=== PATIENT | female | born 1990 | race Caucasian/White ===

== ENCOUNTER 2022-12-29 18:25 | Inpatient (IN) | payer BC, OTHER ==
[~2022-12-29] VITALS: Ht 167.7 cm; Wt 95.2 kg
[2022-12-29 19:00] VITALS: BP 119/64
[2022-12-29] MEDS ORDERED: LACTATED RINGERS 500 ML IV PRN (20:00)
[2022-12-29] MEDS ORDERED: MINERAL OIL 30 ML UDC TOP PRN (20:00)
--- NOTE | 2022-12-29 20:00 | History & Physical-OB ---
OB - Chief Complaint & HPI Date/Time Date of Admission: Date of Admission: Dec 29, 2022 at 18:25 Date seen by a Provider: Dec 29, 2022 Time Seen by a Provider: 19:00 Chief Complaint/History OB-Reason for Admission/Chief: Induction of Labor Hx : 3 Hx Para: 0 Expected Date of Delivery: Dec 29, 2022 Gestational Age in Weeks: 40 Gestational Age in Days: 0 Other Pt reports good movement, no LOF, no VB, and she has been feeling some mild contractions today. She denies any personal or family history of bleeding disorders that she is aware of, denies any complications, no drug or EtOH use. To prior spontaneous abortions. She is here for induction of labor this evening. She would like an epidural and plans to breast feed. Allergies and Home Medications Allergies Coded Allergies: No Known Drug Allergies (Unverified , 12/29/22) Patient Home Medication List Home Medication List Reviewed: Yes OB - History Hx of Present Care: Yes Ultrasounds: Normal mid trimester US Obstetrical Complications: None Medical Complications: None Information Induced Hypertension: No Maternal Gestational Diabetes: No Hemorrhage: No Obstetrical History Hx : 3 Hx Para: 0 Hx Total # of Abortions (Spona: 2 Patient Past Medical History No significant medical history. H/o 2 spontaneous abortions at 5wks and 8wks respecitvely. Social History/Family History Alcohol Use: Denies Use Recreational Drug Use: No OB - Admission Exam Physical Exam Heart: Rhythm Normal Lungs: Clear Abdomen: Gravid Extremities: Normal Reflexes: Normal Cervical Dilatation: 2cm Effacement: 0% Station: -3 Membranes: Intact Heart Rate: 130's Accelerations: Accelerations Present Decelerations: No Decelerations Short Term Variability: Present Enhanced Environmental Operator Variability: Average (6-25) Contractions on Admission: >10 Minutes Apart Intensity: Mild OB - Assessment/Plan/Diagnosis Assessment Assessment: induction of labor Admission Dx Induction of labor Admission Status: Inpatient Order (span 2 midnights) Reason for Inpatient Admission: Induction of labor Plan Plan: Induction Induction Method: per Misoprostol Protocol Problems: (1) Encounter for induction of labor Assessment & Plan: Cytotec protocol - Initial, 50 mcg Cytotec, oral - Subsequent 25 mcg Cytotec oral, q4hrs - Diet: clear liquids (2) 40 weeks gestation of REYNALDO NOWAK MD Dec 29, 2022 20:00
[2022-12-29 20:08] LABS: BASOPHILS % (AUTO) 0 % (0-10); EOSINOPHILS # (AUTO) 0.1 10^3/uL (0.0-0.3); EOSINOPHILS % (AUTO) 1 % (0-10); HEMATOCRIT 38 % (35-52); HEMOGLOBIN 12.9 g/dL (11.5-16.0); LYMPHOCYTES % (AUTO) 17 % (12-44); MEAN CORPUSCULAR HEMOGLOBIN 32 pg (25-34); MEAN CORPUSCULAR HGB CONC 34 g/dL (32-36); MEAN CORPUSCULAR VOLUME 94 fL (80-99); MEAN PLATELET VOLUME 12.3 fL (9.0-12.2); MONOCYTES # (AUTO) 0.9 10^3/uL (0.0-1.0); MONOCYTES % (AUTO) 8 % (0-12); NEUTROPHILS # (AUTO) 8.9 10^3/uL (1.8-7.8); NEUTROPHILS % (AUTO) 74 % (42-75); PLATELET COUNT 137 10^3/uL (130-400)
[2022-12-29] MEDS ORDERED: diphenhydrAMINE 25 MG TABLET PO ONE (20:15)
[2022-12-29] MEDS ORDERED: BUTORPHANOL INJ 2 MG/ML VIAL IV PRN (20:15)
[2022-12-29] MEDS ORDERED: D5 LR 1,000 ML IV SOLN 1,000 ML IV ONE (20:17)
[2022-12-29] MEDS: D5 LR 1,000 ML IV SOLN 1,000 ML IV SCH (20:27)
[2022-12-29] MEDS: LACTATED RINGERS 1,000 ML IV SCH (20:28)
[2022-12-29 20:52] LABS: CLARITY,URINE CLEAR; COLOR,URINE YELLOW; PH,URINE 6.5 (5-9); PROTEIN,URINE NEGATIVE (NEGATIVE)
[2022-12-29 20:53] LABS: BACTERIA,URINE FEW /HPF; BILIRUBIN,URINE NEGATIVE (NEGATIVE); GLUCOSE, URINE (UA) NEGATIVE (NEGATIVE); KETONES,URINE TRACE (NEGATIVE); LEUKOCYTE ESTERASE ,URINE NEGATIVE (NEGATIVE); NITRITE,URINE NEGATIVE (NEGATIVE); SQUAMOUS EPITHELIAL CELL,UR RARE /HPF; WBC,URINE RARE /HPF
[2022-12-29 23:52] VITALS: BP 106/59
[2022-12-30] VITALS (51 sets, daily range): BP systolic 94–154; BP diastolic 52–91
[2022-12-30] MEDS: D5 LR 1,000 ML IV SOLN 1,000 ML IV SCH ×3 (05:10→21:02)
--- NOTE | 2022-12-30 08:38 | Labor Progress Note ---
Labor Progress Note Labor Progress Note Date Seen by Provider: Dec 30, 2022 Time Seen by Provider: 08:36 Subjective: Pt denies complaints. Having some ctxs and they are getting more intense Objective: 2/50/-2 Intact Assessment/Plan: Priyanka Robles is a (30 /Para 3 / 0,Gestational Age (wks)40.1 here for elective IOL CEFM/TOCO Start Pitocin Protocol GBS Neg Anesthesia: Desires epidural Anticipate vaginal delivery. Vitals - Labs Vital Signs - I&O Vital Signs Date Time Temp Pulse Resp B/P (MAP) Pulse Ox O2 Delivery O2 Flow Rate FiO2 12/30/22 03:47 36.4 69 18 104/57 (73) 95 Room Air 12/29/22 23:52 36.3 71 18 106/59 (75) 96 Room Air 12/29/22 19:00 36.6 83 18 98 Room Air Labs Laboratory Tests 12/29/22 19:15: White Blood Count 12.0H, Red Blood Count 4.04, Hemoglobin 12.9, Hematocrit 38, Mean Corpuscular Volume 94, Mean Corpuscular Hemoglobin 32, Mean Corpuscular Hemoglobin Concent 34, Red Cell Distribution Width 13.4, Platelet Count 137, Mean Platelet Volume 12.3H, Immature Granulocyte % (Auto) 1, Neutrophils (%) (Auto) 74, Lymphocytes (%) (Auto) 17, Monocytes (%) (Auto) 8, Eosinophils (%) (Auto) 1, Basophils (%) (Auto) 0, Neutrophils # (Auto) 8.9H, Lymphocytes # (Auto) 2.0, Monocytes # (Auto) 0.9, Eosinophils # (Auto) 0.1, Basophils # (Auto) 0.0, Immature Granulocyte # (Auto) 0.1, Urine Color YELLOW, Urine Clarity CLEAR, Urine pH 6.5, Urine Specific [place] 1.020, Urine Protein NEGATIVE, Urine Glucose (UA) NEGATIVE, Urine Ketones TRACEH, Urine Nitrite NEGATIVE, Urine Bilirubin NEGATIVE, Urine Urobilinogen 0.2, Urine Leukocyte Esterase NEGATIVE, Urine RBC (Auto) TRACEH, Urine RBC NONE, Urine WBC RARE, Urine Squamous Epithelial Cells RARE, Urine Crystals NONE, Urine Bacteria FEWH, Urine Casts NONE, Urine Mucus NEGATIVE, Urine Culture Indicated YES, Syphilis Total Antibody Negative ELIDA RAMOS MD Dec 30, 2022 08:38
[2022-12-30] MEDS ORDERED: OXYTOCIN PRE-MIX DRIP 500 ML IV SCH (08:45)
[2022-12-30] MEDS: LACTATED RINGERS 1,000 ML IV SCH (13:10)
[2022-12-30] MEDS ORDERED: fentaNYL 2 mcg/ml BUPIVA 0.125 100 ML ONE (14:02)
[2022-12-30] MEDS ORDERED: fentaNYL 2 mcg/ml BUPIVA 0.125 100 ML EPI SCH (14:45)
[2022-12-30] MEDS ORDERED: NALOXONE 0.4 MG/ML 1 ML VIAL IV PRN ×2 (14:45)
[2022-12-30] MEDS ORDERED: diphenhydrAMINE INJ 50 MG/ML VIAL IV PRN (14:45)
[2022-12-30] MEDS ORDERED: LACTATED RINGERS 1,000 ML IV SCH (14:45)
[2022-12-30] MEDS ORDERED: METOCLOPRAMIDE INJ 10 MG/2 ML IV PRN (14:45)
[2022-12-30] MEDS ORDERED: ONDANSETRON 4 MG/2 ML (SDV) Z0FRAN IV PRN (14:45)
--- NOTE | 2022-12-30 18:58 | Labor Progress Note ---
Labor Progress Note Labor Progress Note Date Seen by Provider: Dec 30, 2022 Time Seen by Provider: 18:10 Subjective: Pt denies complaints. Pain well controlled with epidural. Feeling some pressure Objective: complete/100/0 Assessment/Plan: Priyanka Robles is a (30 /Para 3 / 0,Gestational Age (wks)40.0 here for elective IOL. CEFM/TOCO Continue pitocin augmentation Anesthesia: epidural in place Anticipate vaginal delivery. Vitals - Labs Vital Signs - I&O Vital Signs Date Time Temp Pulse Resp B/P (MAP) Pulse Ox O2 Delivery O2 Flow Rate FiO2 12/30/22 18:00 37.1 94 18 128/86 (100) 99 Room Air 12/30/22 17:45 94 18 128/86 (100) 99 Room Air 12/30/22 17:30 82 18 154/75 (101) 99 Room Air 12/30/22 17:15 86 18 113/68 (83) 99 Room Air 12/30/22 17:00 75 18 109/61 (77) 100 Room Air 12/30/22 16:45 75 18 109/61 (77) 100 Room Air 12/30/22 16:30 75 18 98/58 (71) 100 Room Air 12/30/22 16:15 75 18 98/58 (71) 100 Room Air 12/30/22 16:00 86 18 103/63 (76) 100 Room Air 12/30/22 15:45 71 18 113/59 (77) 100 Room Air 12/30/22 15:40 82 18 104/56 (72) 99 Room Air 12/30/22 15:30 77 18 100 Room Air 15.00 12/30/22 15:20 70 18 121/56 (77) 100 Room Air 12/30/22 15:19 Room Air 12/30/22 15:15 70 18 125/66 (85) 100 Non Rebreather 15.00 12/30/22 15:14 Non Rebreather 15.00 12/30/22 15:10 77 18 119/75 (90) 99 Room Air 12/30/22 15:10 73 18 124/73 (90) 99 Room Air 12/30/22 15:05 72 18 114/69 (84) 100 Room Air 12/30/22 15:00 75 18 111/67 (82) 99 Room Air 12/30/22 14:55 75 18 113/63 (80) 98 Room Air 12/30/22 14:50 71 18 115/69 (84) 99 Room Air 12/30/22 14:45 77 18 118/70 (86) 99 Room Air 12/30/22 14:40 74 18 120/70 (87) 99 Room Air 12/30/22 14:35 36.5 68 18 129/72 (91) 98 Room Air 12/30/22 14:30 77 18 120/72 (88) 100 Room Air 12/30/22 14:25 68 18 129/77 (94) 100 Room Air 12/30/22 14:15 65 18 131/75 (93) Room Air 12/30/22 14:00 67 18 121/74 (90) Room Air 12/30/22 13:45 18 Room Air 12/30/22 13:30 18 Room Air 12/30/22 13:15 18 Room Air 12/30/22 13:00 18 Room Air 12/30/22 12:45 61 18 94/55 (68) Room Air 12/30/22 12:30 59 18 97/55 (69) Room Air 12/30/22 12:15 56 18 95/52 (66) Room Air 12/30/22 12:00 36.6 68 18 109/60 (76) Room Air 12/30/22 11:45 72 18 112/70 (84) Room Air 12/30/22 11:30 88 18 121/71 (88) Room Air 12/30/22 11:15 36.3 88 18 121/71 (88) Room Air 12/30/22 11:00 74 18 115/67 (83) Room Air 12/30/22 10:45 74 18 111/67 (82) Room Air 12/30/22 10:30 66 18 118/71 (87) Room Air 12/30/22 10:15 80 18 128/91 (103) Room Air 12/30/22 10:00 76 18 126/80 (95) Room Air 12/30/22 09:45 70 18 111/70 (84) Room Air 12/30/22 09:30 71 18 102/59 (73) Room Air 12/30/22 09:00 18 Room Air 12/30/22 08:30 36.4 89 18 113/70 (84) Room Air 12/30/22 03:47 36.4 69 18 104/57 (73) 95 Room Air 12/29/22 23:52 36.3 71 18 106/59 (75) 96 Room Air 12/29/22 19:00 36.6 83 18 98 Room Air Labs Laboratory Tests 12/29/22 19:15: White Blood Count 12.0H, Red Blood Count 4.04, Hemoglobin 12.9, Hematocrit 38, Mean Corpuscular Volume 94, Mean Corpuscular Hemoglobin 32, Mean Corpuscular Hemoglobin Concent 34, Red Cell Distribution Width 13.4, Platelet Count 137, Mean Platelet Volume 12.3H, Immature Granulocyte % (Auto) 1, Neutrophils (%) (Auto) 74, Lymphocytes (%) (Auto) 17, Monocytes (%) (Auto) 8, Eosinophils (%) (Auto) 1, Basophils (%) (Auto) 0, Neutrophils # (Auto) 8.9H, Lymphocytes # (Auto ) 2.0, Monocytes # (Auto) 0.9, Eosinophils # (Auto) 0.1, Basophils # (Auto) 0.0, Immature Granulocyte # (Auto) 0.1, Urine Color YELLOW, Urine Clarity CLEAR, Urine pH 6.5, Urine Specific [place] 1.020, Urine Protein NEGATIVE, Urine Glucose (UA) NEGATIVE, Urine Ketones TRACEH, Urine Nitrite NEGATIVE, Urine Bilirubin NEGATIVE, Urine Urobilinogen 0.2, Urine Leukocyte Esterase NEGATIVE, Urine RBC (Auto) TRACEH, Urine RBC NONE, Urine WBC RARE, Urine Squamous Epithelial Cells RARE, Urine Crystals NONE, Urine Bacteria FEWH, Urine Casts NONE, Urine Mucus NEGATIVE, Urine Culture Indicated YES, Syphilis Total Antibody Negative Microbiology 12/29/22 Urine Culture - Preliminary, Resulted Gram Pos Mixed Bacterial Esperanza ELIDA RAMOS MD Dec 30, 2022 18:58
[2022-12-30] MEDS ORDERED: LIDOCAINE 2% w/EPI 1:200,000 20 ML VIAL ONE (19:29)
--- NOTE | 2022-12-30 20:55 | OB Labor & Delivery Record ---
Vag Delivery Note Vag Delivery Note Date of Delivery: 12/30/22 Preoperative Diagnosis: Priyanka Robles is a (30 /Para 3 / 0, Gestational Age (wks)40.0 wga here for elective IOL Postoperative Diagnosis: Same Surgeon: ELIDA RAMOS MD Pockets And Pieces Necktie Operator: None Anesthesia: Epidural Delivery Type: @ 2020 Findings: Viable Male infant, apgars 8/9, weight 9#6, 4245 grams Lacerations: 2nd degree perineal laceration Intact placenta with 3 vessel cord. No nuchal cord, body cord or shoulder dystocia Estimated Blood Loss: 200 ml Complications: None Condition: Stable Description of Procedure: The patient is a 32 year old female who presented for elective IOL. She was admitted and informed consent was obtained. Her labor course was remarkable for pitocin augmentation. She progressed to complete dilatation and began to push. She was then set up for delivery. The infant's head was delivered atraumatically in the CAROLINE position. The shoulders and remainder of the 's body were then delivered without difficulty. Upon delivery, the infant was vigorous and placed on maternal chest and the mouth and nares were bulb suctioned and attended to by nursery nurse. After a 3 min delay, cord was doubly clamped and cut by FOB and the remained on maternal chest. An intact placenta with 3-vessel cord delivered via Sweetie and there was found to be minimal bleeding.~ Vigorous fundal massage was performed and the fundus was found to be firm. IV oxytocin was given. Examination of the vagina and perineum revealed a 2nd degree perineal laceration repaired in the usual fashion with 3-0 vicryl rapide suture. Following the repair, sponge, instrument and needle counts were correct. Mom and baby were both in stable condition in the labor suite. Vitals - Labs Vital Signs - I&O Vital Signs Date Time Temp Pulse Resp B/P (MAP) Pulse Ox O2 Delivery O2 Flow Rate FiO2 12/30/22 19:00 90 18 126/77 (93) 100 Room Air 12/30/22 18:45 76 18 126/77 (93) 100 Room Air 12/30/22 18:30 76 18 124/75 (91) 100 Room Air 12/30/22 18:15 90 18 125/77 (93) 100 Room Air 12/30/22 18:00 37.1 94 18 128/86 (100) 99 Room Air 12/30/22 17:45 94 18 128/86 (100) 99 Room Air 12/30/22 17:30 82 18 154/75 (101) 99 Room Air 12/30/22 17:15 86 18 113/68 (83) 99 Room Air 12/30/22 17:00 75 18 109/61 (77) 100 Room Air 12/30/22 16:45 75 18 109/61 (77) 100 Room Air 12/30/22 16:30 75 18 98/58 (71) 100 Room Air 12/30/22 16:15 75 18 98/58 (71) 100 Room Air 12/30/22 16:00 86 18 103/63 (76) 100 Room Air 12/30/22 15:45 71 18 113/59 (77) 100 Room Air 12/30/22 15:40 82 18 104/56 (72) 99 Room Air 12/30/22 15:30 77 18 100 Room Air 15.00 12/30/22 15:20 70 18 121/56 (77) 100 Room Air 12/30/22 15:19 Room Air 12/30/22 15:15 70 18 125/66 (85) 100 Non Rebreather 15.00 12/30/22 15:14 Non Rebreather 15.00 12/30/22 15:10 77 18 119/75 (90) 99 Room Air 12/30/22 15:10 73 18 124/73 (90) 99 Room Air 12/30/22 15:05 72 18 114/69 (84) 100 Room Air 12/30/22 15:00 75 18 111/67 (82) 99 Room Air 12/30/22 14:55 75 18 113/63 (80) 98 Room Air 12/30/22 14:50 71 18 115/69 (84) 99 Room Air 12/30/22 14:45 77 18 118/70 (86) 99 Room Air 12/30/22 14:40 74 18 120/70 (87) 99 Room Air 12/30/22 14:35 36.5 68 18 129/72 (91) 98 Room Air 12/30/22 14:30 77 18 120/72 (88) 100 Room Air 12/30/22 14:25 68 18 129/77 (94) 100 Room Air 12/30/22 14:15 65 18 131/75 (93) Room Air 12/30/22 14:00 67 18 121/74 (90) Room Air 12/30/22 13:45 18 Room Air 12/30/22 13:30 18 Room Air 12/30/22 13:15 18 Room Air 12/30/22 13:00 18 Room Air 12/30/22 12:45 61 18 94/55 (68) Room Air 12/30/22 12:30 59 18 97/55 (69) Room Air 12/30/22 12:15 56 18 95/52 (66) Room Air 12/30/22 12:00 36.6 68 18 109/60 (76) Room Air 12/30/22 11:45 72 18 112/70 (84) Room Air 12/30/22 11:30 88 18 121/71 (88) Room Air 12/30/22 11:15 36.3 88 18 121/71 (88) Room Air 12/30/22 11:00 74 18 115/67 (83) Room Air 12/30/22 10:45 74 18 111/67 (82) Room Air 12/30/22 10:30 66 18 118/71 (87) Room Air 12/30/22 10:15 80 18 128/91 (103) Room Air 12/30/22 10:00 76 18 126/80 (95) Room Air 12/30/22 09:45 70 18 111/70 (84) Room Air 12/30/22 09:30 71 18 102/59 (73) Room Air 12/30/22 09:00 18 Room Air 12/30/22 08:30 36.4 89 18 113/70 (84) Room Air 12/30/22 03:47 36.4 69 18 104/57 (73) 95 Room Air 12/29/22 23:52 36.3 71 18 106/59 (75) 96 Room Air Labs Microbiology 12/29/22 Urine Culture - Preliminary, Resulted Gram Pos Mixed Bacterial Esperanza ELIDA RAMOS MD Dec 30, 2022 20:55
[2022-12-30] MEDS ORDERED: WITCH HAZEL(TUCKS) 40 EA JAR TOP PRN (21:00)
[2022-12-30] MEDS ORDERED: ACETAMINOPHEN 500 MG TABLET PO SCH (21:00)
[2022-12-30] MEDS ORDERED: BENZOCAINE/MENTHOL (DERMOPLAST) 56 ML CAN TP PRN (21:00)
[2022-12-30] MEDS ORDERED: IBUPROFEN 600 MG TABLET PO SCH (21:00)
[2022-12-30] MEDS: OXYTOCIN PRE-MIX DRIP 500 ML IV SCH ×2 (21:03→21:31)
[2022-12-30] MEDS: CATHETER FLUSH 10 ML SYR IV SCH (22:00)
[2022-12-30] MEDS: DOCUSATE SODIUM 100 MG CAPSULE PO SCH (23:07)
[2022-12-30] MEDS: ACETAMINOPHEN 500 MG TABLET PO SCH (23:07)
[2022-12-30] MEDS: IBUPROFEN 600 MG TABLET PO SCH (23:07)
[2022-12-31 00:20] VITALS: BP 106/52
[2022-12-31] MEDS ORDERED: DIBUCAINE 1% OINTMENT 28 GM TUBE TOP PRN (01:00)
[2022-12-31 03:36] VITALS: BP 116/56
[2022-12-31] MEDS: ACETAMINOPHEN 500 MG TABLET PO SCH ×3 (05:25→18:19)
[2022-12-31] MEDS: IBUPROFEN 600 MG TABLET PO SCH ×3 (05:25→18:19)
[2022-12-31 05:30] LABS: EOSINOPHILS # (AUTO) 0.1 10^3/uL (0.0-0.3); EOSINOPHILS % (AUTO) 1 % (0-10); MEAN CORPUSCULAR HGB CONC 34 g/dL (32-36)
[2022-12-31 05:32] LABS: BASOPHILS % (AUTO) 0 % (0-10); HEMATOCRIT 32 % (35-52); HEMOGLOBIN 10.9 g/dL (11.5-16.0); LYMPHOCYTES # (AUTO) 1.6 10^3/uL (1.0-4.0); LYMPHOCYTES % (AUTO) 11 % (12-44); MEAN CORPUSCULAR HEMOGLOBIN 32 pg (25-34); MEAN CORPUSCULAR VOLUME 94 fL (80-99); MEAN PLATELET VOLUME 12.2 fL (9.0-12.2); MONOCYTES # (AUTO) 1.4 10^3/uL (0.0-1.0); MONOCYTES % (AUTO) 9 % (0-12); NEUTROPHILS # (AUTO) 11.7 10^3/uL (1.8-7.8); NEUTROPHILS % (AUTO) 79 % (42-75); PLATELET COUNT 118 10^3/uL (130-400); WHITE BLOOD COUNT 14.9 10^3/uL (4.3-11.0)
[2022-12-31 09:02] VITALS: BP 110/65
[2022-12-31] MEDS: FERROUS SULFATE 325 MG (IRON) TABLET PO SCH (09:02)
[2022-12-31] MEDS: DOCUSATE SODIUM 100 MG CAPSULE PO SCH (09:02)
--- NOTE | 2022-12-31 09:43 | Anesthesia-Regional Post-Op ---
Regional Patient Condition Mental Status: Alert, Oriented x3 Circulation: Same as Pre-Op Headache: Absent Sensation: Full Recovery Motor Block: Absent Post Op Complications Complications None Follow Up Care/Instructions Patient Instructions None needed. Anesthesia/Patient Condition Patient is doing well, no complaints, stable vital signs, no apparent adverse anesthesia problems. No complications reported per nursing. BRANNON BUTT CRNA Dec 31, 2022 09:43
--- NOTE | 2022-12-31 11:52 | Postpartum Progress Note ---
Note Note Day # 1 Subjective: Patient is without complaints. Ambulating, voiding. Tolerating a regular diet without nausea or vomiting. Normal lochia. Pain is well controlled with oral pain medications. Breast feeding. Objective: Vital Signs 12/30/22 12/31/22 15:30 09:02 Temp 36.4 Pulse 79 Resp 18 B/P (MAP) 110/65 (80) Pulse Ox 98 O2 Delivery Room Air O2 Flow Rate 15.00 Physical Exam: General - Alert and oriented, no apparent distress Lungs - CTAB Heart - RRR, no murmur Abdomen - Soft, appropriately tender to palpation, non-distended, fundus firm at umbilicus Extremities - no edema Assessment: post- day # 1, status post spontaneous vaginal delivery. Asymptomatic acute blood loss anemia Recovering well, hemodynamically stable Plan: Routine care. Encourage breast feeding. Encourage ambulation. Ferrous sulfate supplementation. Plan for discharge tomorrow Vitals - Labs Vital Signs - I&O Vital Signs Date Time Temp Pulse Resp B/P (MAP) Pulse Ox O2 Delivery O2 Flow Rate FiO2 12/31/22 09:02 36.4 79 18 110/65 (80) 98 Room Air 12/31/22 03:36 36.5 76 20 116/56 (76) 98 Room Air 12/31/22 00:20 36.8 81 20 106/52 (70) 96 Room Air 12/30/22 21:02 90 116/61 (79) 12/30/22 20:39 95 117/67 (84) 12/30/22 20:09 85 123/71 (88) 100 Room Air 12/30/22 19:54 73 123/66 (85) 100 Room Air 12/30/22 19:25 37.1 76 20 123/78 (93) 100 Room Air 12/30/22 19:10 74 123/72 (89) 100 Room Air 12/30/22 19:00 90 18 126/77 (93) 100 Room Air 12/30/22 18:45 76 18 126/77 (93) 100 Room Air 12/30/22 18:30 76 18 124/75 (91) 100 Room Air 12/30/22 18:15 90 18 125/77 (93) 100 Room Air 12/30/22 18:00 37.1 94 18 128/86 (100) 99 Room Air 12/30/22 17:45 94 18 128/86 (100) 99 Room Air 12/30/22 17:30 82 18 154/75 (101) 99 Room Air 12/30/22 17:15 86 18 113/68 (83) 99 Room Air 12/30/22 17:00 75 18 109/61 (77) 100 Room Air 12/30/22 16:45 75 18 109/61 (77) 100 Room Air 12/30/22 16:30 75 18 98/58 (71) 100 Room Air 12/30/22 16:15 75 18 98/58 (71) 100 Room Air 12/30/22 16:00 86 18 103/63 (76) 100 Room Air 12/30/22 15:45 71 18 113/59 (77) 100 Room Air 12/30/22 15:40 82 18 104/56 (72) 99 Room Air 12/30/22 15:30 77 18 100 Room Air 15.00 12/30/22 15:20 70 18 121/56 (77) 100 Room Air 12/30/22 15:19 Room Air 12/30/22 15:15 70 18 125/66 (85) 100 Non Rebreather 15.00 12/30/22 15:14 Non Rebreather 15.00 12/30/22 15:10 77 18 119/75 (90) 99 Room Air 12/30/22 15:10 73 18 124/73 (90) 99 Room Air 12/30/22 15:05 72 18 114/69 (84) 100 Room Air 12/30/22 15:00 75 18 111/67 (82) 99 Room Air 12/30/22 14:55 75 18 113/63 (80) 98 Room Air 12/30/22 14:50 71 18 115/69 (84) 99 Room Air 12/30/22 14:45 77 18 118/70 (86) 99 Room Air 12/30/22 14:40 74 18 120/70 (87) 99 Room Air 12/30/22 14:35 36.5 68 18 129/72 (91) 98 Room Air 12/30/22 14:30 77 18 120/72 (88) 100 Room Air 12/30/22 14:25 68 18 129/77 (94) 100 Room Air 12/30/22 14:15 65 18 131/75 (93) Room Air 12/30/22 14:00 67 18 121/74 (90) Room Air 12/30/22 13:45 18 Room Air 12/30/22 13:30 18 Room Air 12/30/22 13:15 18 Room Air 12/30/22 13:00 18 Room Air 12/30/22 12:45 61 18 94/55 (68) Room Air 12/30/22 12:30 59 18 97/55 (69) Room Air 12/30/22 12:15 56 18 95/52 (66) Room Air 12/30/22 12:00 36.6 68 18 109/60 (76) Room Air I & O 12/31/22 06:59 Intake Total 3369 ml Balance 3369 ml Labs Laboratory Tests 12/31/22 05:12: White Blood Count 14.9H, Red Blood Count 3.42L, Hemoglobin 10.9L, Hematocrit 32L , Mean Corpuscular Volume 94, Mean Corpuscular Hemoglobin 32, Mean Corpuscular Hemoglobin Concent 34, Red Cell Distribution Width 13.4, Platelet Count 118L, Mean Platelet Volume 12.2, Immature Granulocyte % (Auto) 1, Neutrophils (%) (Auto) 79H, Lymphocytes (%) (Auto) 11L, Monocytes (%) (Auto) 9, Eosinophils (%) (Auto) 1, Basophils (%) (Auto) 0, Neutrophils # (Auto) 11.7H, Lymphocytes # (Auto) 1.6, Monocytes # (Auto) 1.4H, Eosinophils # (Auto) 0.1, Basophils # (Auto) 0.0, Immature Granulocyte # (Auto) 0.1, Percent Immature Platelet Fraction 8.6H Microbiology 12/29/22 Urine Culture - Preliminary, Resulted Gram Pos Mixed Bacterial Esperanza KENDRA MONTGOMERY MD Dec 31, 2022 11:52
[2022-12-31] MEDS: CATHETER FLUSH 10 ML SYR IV SCH (13:11)
[2022-12-31] MEDS ORDERED: FERR325T24 PO (14:26)
[2022-12-31] MEDS ORDERED: IBUP-844 PO (14:26)
[2022-12-31] MEDS ORDERED: DOCU100C37 PO (14:26)
[2022-12-31 14:38] VITALS: BP 134/72
[2022-12-31 18:17] VITALS: BP 127/76
[2023-01-01 00:45] VITALS: BP 118/78
[2023-01-01] MEDS: IBUPROFEN 600 MG TABLET PO SCH ×3 (00:53→12:45)
[2023-01-01] MEDS: DOCUSATE SODIUM 100 MG CAPSULE PO SCH ×2 (00:53→08:35)
[2023-01-01] MEDS: ACETAMINOPHEN 500 MG TABLET PO SCH ×3 (00:54→12:44)
[2023-01-01 06:47] VITALS: BP 100/62
[2023-01-01] MEDS: FERROUS SULFATE 325 MG (IRON) TABLET PO SCH (08:35)
--- NOTE | 2023-01-01 11:34 | Short Stay Summary ---
Discharge Summary Hospital Course Problems/Dx: (1) Encounter for induction of labor (2) 40 weeks gestation of Final Diagnosis: term spontaneous vaginal delivery Hospital Course Date of Admission: Dec 29, 2022 at 18:25 Admission Diagnosis : 1. at 40wk1d 2. elective IOL Family Physician/Provider: Dr. Conway Date of Discharge: 01/01/23 Discharge Diagnosis: 1. s/p at 40wk1d 2. elective IOL 3. second degree laceration, repaired Hospital Course: Elective term IOL at 40wk. Uncomplicated labor, delivery, and course. Breast feeding. Labs and Pending Lab Test: Laboratory Tests 12/29/22 19:15: White Blood Count 12.0H, Red Blood Count 4.04, Hemoglobin 12.9, Hematocrit 38, Mean Corpuscular Volume 94, Mean Corpuscular Hemoglobin 32, Mean Corpuscular Hemoglobin Concent 34, Red Cell Distribution Width 13.4, Platelet Count 137, Mean Platelet Volume 12.3H, Immature Granulocyte % (Auto) 1, Neutrophils (%) (Auto) 74, Lymphocytes (%) (Auto) 17, Monocytes (%) (Auto) 8, Eosinophils (%) (Auto) 1, Basophils (%) (Auto) 0, Neutrophils # (Auto) 8.9H, Lymphocytes # (Auto) 2.0, Monocytes # (Auto) 0.9, Eosinophils # (Auto) 0.1, Basophils # (Auto) 0.0, Immature Granulocyte # (Auto) 0.1, Urine Color YELLOW, Urine Clarity CLEAR, Urine pH 6.5, Urine Specific [place] 1.020, Urine Protein NEGATIVE, Urine Glucose (UA) NEGATIVE, Urine Ketones TRACEH, Urine Nitrite NEGATIVE, Urine Bilirubin NEGATIVE, Urine Urobilinogen 0.2, Urine Leukocyte Esterase NEGATIVE, Urine RBC (Auto) TRACEH, Urine RBC NONE, Urine WBC RARE, Urine Squamous Epithelial Cells RARE, Urine Crystals NONE, Urine Bacteria FEWH, Urine Casts NONE, Urine Mucus NEGATIVE, Urine Culture Indicated YES, Syphilis Total Antibody Negative 12/31/22 05:12: White Blood Count 14.9H, Red Blood Count 3.42L, Hemoglobin 10.9L, Hematocrit 32L, Mean Corpuscular Volume 94, Mean Corpuscular Hemoglobin 32, Mean Corpuscular Hemoglobin Concent 34, Red Cell Distribution Width 13.4, Platelet Count 118L, Mean Platelet Volume 12.2, Immature Granulocyte % (Auto) 1, Neutrophils (%) (Auto) 79H, Lymphocytes (%) (Auto) 11L, Monocytes (%) (Auto) 9, Eosinophils (%) (Auto) 1, Basophils (%) (Auto) 0, Neutrophils # (Auto) 11.7H, Lymphocytes # (Auto) 1.6, Monocytes # (Auto) 1.4H, Eosinophils # (Auto) 0.1, Basophils # (Auto) 0.0, Immature Granulocyte # (Auto) 0.1, Percent Immature Platelet Fraction 8.6H Microbiology 12/29/22 Urine Culture - Final, Complete See Comments Microbiology 12/29/22 Urine Culture - Final, Complete See Comments Home Meds Active Docusate Sodium 100 Mg Capsule 100 Mg PO BID Ibu (Ibuprofen) 600 Mg Tablet 600 Mg PO Q6H PRN Ferosul (Ferrous Sulfate) 325 Mg (65 Mg Iron) Tablet 325 Mg PO DAILY Assessment/Pt Instructions Follow up with Dr. Conway or Beverley at [facility] in 6wk. Discharge Instructions Discharge Diet: No Restrictions Discharge Physical Examination General Appearance: Alert, Oriented X3, Cooperative Psych/Mental Status: Mood NL Allergies: Coded Allergies: No Known Drug Allergies (Unverified , 12/29/22) Discharge Summary Date of Admission Dec 29, 2022 at 18:25 Date of Discharge Discharge Date: Jan 01, 2023 Discharge Diagnosis (1) Encounter for induction of labor Assessment & Plan: Cytotec protocol - Initial, 50 mcg Cytotec, oral - Subsequent 25 mcg Cytotec oral, q4hrs - Diet: clear liquids (2) 40 weeks gestation of NICOLE WOODSON DO Jan 01, 2023 11:34
[2023-01-01 12:46] VITALS: BP 112/67
== END 2023-01-01 15:17 | disposition home or self-care (01) | DRG 806 ==
LOC: LDRP 18:25
PROVIDERS: ADMIT Family Medicine; ATTEND Family Medicine
PROC: 10E0XZZ Delivery of Products of Conception, External Approach (ICD-10-PCS; principal; 2022-12-30)
PROC: 0KQM0ZZ Repair Perineum Muscle, Open Approach (ICD-10-PCS; 2022-12-30)
DX: O70.1 Second degree perineal laceration during delivery (principal); D62 Acute posthemorrhagic anemia; Z37.0 Single live birth; Z3A.40 40 weeks gestation of pregnancy; O90.81 Anemia of the puerperium
CPT/HCPCS: 36415; 81000; 85025; 86780; 86850; 86900; 86901; 87088